=== PATIENT | male | born 1970 | race Caucasian/White ===

== ENCOUNTER 2021-07-13 10:08 | Outpatient (CLI) | payer BC, SELFPAY ==
[2021-07-13 10:36] LABS: Sperm Present Sperm Not Present
== END 2021-07-13 10:09 | disposition home or self-care (01) ==
LOC: LAB 10:16
PROVIDERS: Visit Provider Urology
DX: Z98.52 Vasectomy status (principal)
CPT/HCPCS: 89310

== ENCOUNTER 2021-07-27 12:17 | Outpatient (CLI) | payer BC, SELFPAY ==
[2021-07-27 13:12] LABS: Sperm Present Sperm Not Present
== END 2021-07-27 12:18 | disposition home or self-care (01) ==
LOC: LAB 12:19
PROVIDERS: PCP Family Medicine; Visit Provider Urology
DX: Z98.52 Vasectomy status (principal)
CPT/HCPCS: 89310

== ENCOUNTER 2021-08-03 08:30 | Outpatient (CLI) | payer BC, SELFPAY ==
--- NOTE | 2021-08-03 08:34 | US_ITS ---
WS: [id number] ULTRASOUND ABDOMEN CLINICAL INFORMATION: NAUSEA/VOMITING;ELEVATED LIVER ENZYMES; DIARRHEA COMPARISON: FINDINGS: Liver Size: Enlarged Craniocaudal length: 18.7 cm. Echogenicity: Coarse Surface nodularity: None. Mass (size and location): None. Bile ducts Intrahepatic ducts: Normal. Common bile duct diameter: 0.4 cm. Gallbladder Normal. Gallstones: None. Gallbladder sludge: None. Gallbladder wall thickening: None. Pericholecystic fluid: None. Sonographic Rivas sign: Absent. Pancreas Not well visualized Spleen Splenomegaly: None. Craniocaudal length: 10.5 cm. Right kidney: Normal. Hydronephrosis: None. Size: 11.3 cm x 5.2 cm x 5.2 cm Left kidney: Normal. Hydronephrosis: None. Size: 11.4 cm x 4.6 cm x 5.6 cm. Abdominal aorta and IVC Visualized portions are normal. Ascites: None. US/US abdomen complete* [id number] IMPRESSION: 1. Hepatomegaly with coarse echogenicity likely due to diffuse fatty infiltrat ion or hepatocellular disease. Recommend correlation with liver function tests. 2. Gallbladder is normal in appearance. No cholelithiasis. Common bile duct me asures 4.3 mm. 3. No hydronephrosis in either kidney. 4. Normal spleen. 5. Pancreas not well visualized.. 6. Ultrasound otherwise unremarkable.
== END 2021-08-03 08:31 | disposition home or self-care (01) ==
LOC: RAD 08:32
PROVIDERS: PCP Family Medicine; Visit Provider Nurse Practitioner Family
DX: R11.2 Nausea with vomiting, unspecified (principal); R74.8 Abnormal levels of other serum enzymes; R19.7 Diarrhea, unspecified; R16.0 Hepatomegaly, not elsewhere classified
CPT/HCPCS: 76700

== ENCOUNTER 2022-05-02 09:36 | Outpatient (CLI) | payer BC, SELFPAY ==
[2022-05-02 10:22] LABS: Estmated Average Glucose 128; Hemoglobin A1C 6.1 % (4.0-6.0)
[2022-05-02 10:36] LABS: Testosterone Total - Urology 280 ng/mL (300-1000)
[2022-05-03 07:59] LABS: Alanine Aminotransferase 29 U/L (0-41); Albumin Level 4.5 g/dL (3.5-5.2); Alkaline Phosphatase 83 U/L (40-130); Anion Gap 17.7 (5-19); Aspartate Amino Transferase 24 U/L (0-40); Blood Urea Nitrogen 16 mg/dL (6-20); Calcium 9.6 mg/dL (8.5-10.5); Carbon Dioxide 27 mmol/L (22-29); Chloride 98 mmol/L (98-107); Chol HDL Ratio 3.89 mg/dL (1.0-5.00); Cholesterol 109 mg/dL (0-200); Glomerular Filtration Rate 77.9 mL/min (90-130); Glucose 123 mg/dL (65-115); HDL Cholesterol 28 mg/dL (60-100); LDL Cholesterol Calculated 45 mg/dL (50-129); LDL HDL Ratio 1.61 RATIO (0.00-3.22); Osmolality Calculated 287 mOsm/kg (285-295); Potassium 5.7 mmol/L (3.5-5.1); Sodium 137 mmol/L (136-145); Total Bilirubin 0.4 mg/dL (0.15-1.2); Total Protein 7.5 g/dL (6.6-8.7); Triglycerides 179 mg/dL (0-150)
== END 2022-05-02 09:37 | disposition home or self-care (01) ==
PROVIDERS: Internal Medicine; PCP Family Medicine; Visit Provider Urology
DX: R79.89 Other specified abnormal findings of blood chemistry (principal); E11.9 Type 2 diabetes mellitus without complications
CPT/HCPCS: 36415; 80053; 80061; 81003; 83036; 84403

== ENCOUNTER 2023-11-18 09:43 | Outpatient (CLI) | payer BC, SELFPAY ==
--- NOTE | 2023-11-18 09:55 | XRR_ITS ---
PROCEDURE INFORMATION: Exam: XR Right Knee Exam date and time: 11/18/2023 10:08 AM Age: 53 years old Clinical indication: Right; Patient HX: RT knee pain below kneecap x 2 mo; Additional info: Pain in R knee TECHNIQUE: Imaging protocol: Radiologic exam of the right knee. Views: 3 views. COMPARISON: No relevant prior studies available. FINDINGS: Bones/joints: Negative for acute fracture. Normal joint alignment. Negative for joint effusion. Moderate to severe narrowing medial joint space with marginal osteophytes. Soft tissues: Normal. XR/XR knee RT 3V* [id number] IMPRESSION: Negative for acute pathology.
== END 2023-11-18 09:44 | disposition home or self-care (01) ==
PROVIDERS: PCP Family Medicine; Visit Provider Family Medicine
DX: M25.561 Pain in right knee (principal)
CPT/HCPCS: 73562

== ENCOUNTER → 2024-01-12 08:37 | Outpatient (BNVA) | payer BC, SELFPAY | PROVIDERS: PCP Family Medicine; Referring Provider Family Medicine; Visit Provider Specialist | DX: M17.11 Unilateral primary osteoarthritis, right knee | CPT/HCPCS: 73560; 73565 ==

== ENCOUNTER 2024-02-20 07:58 | Outpatient (CLI) | payer BC, SELFPAY ==
--- NOTE | 2024-02-20 08:00 | IR_ITS ---
WS: [id number] RIGHT KNEE ARTHROGRAM Fluoroscopic guided right knee arthrogram. CLINICAL INFORMATION: right knee pain TECHNIQUE: The procedure including risks, benefits, and complications were discussed with the patient , who agreed to proceed. Timeout was performed. Using sterile technique, the patient was prepped and draped in the usual sterile fashion. After 1% lidocaine injection using fluoroscopic guidance, a 22-g auge spinal needle was advanced into the left patellofemoral compartment. Subsequently 40 cc of a mix ture containing 10 cc 1% lidocaine, 20 cc normal saline, 10 cc Omnipaque 240, and 0.2 cc gadolinium w as administered. No immediate complications. FLUOROSCOPY TIME: 0min [id number] # of spot films: 2 IR/[place] [id number] IMPRESSION: Uncomplicated right knee fluoroscopic guided arthrogram. MRI to follow.
--- NOTE | 2024-02-20 08:01 | MR_ITS ---
WS: [id number] MRI RIGHT KNEE ARTHROGRAM TECHNIQUE: Axial PD, coronal PD fat sat, coronal PD, sagittal PD, and sagittal PD fat-sat images obta ined. Multiplanar imaging post arthrogram. CLINICAL INFORMATION: M17.11 - Unilateral primary osteoarthritis, right knee FINDINGS: Distal quadriceps and patella tendons are intact. Hypertrophic patella. T1 and T2 signal abnormality involving the ACL compatible with chronic mucoid degeneration. PCL appears intact. Moderate tricompar tmental arthritis. Hypertrophic changes along the joint line. Moderate chondromalacia patella. Media l and lateral patellar retinaculum appear intact. Hypertrophic patella. Lobulated popliteal cyst measuring 5.5 x 2.3 cm. Evidence of prior postoperative changes of medial me niscectomy. Near complete loss of the medial joint space with grade IV chondromalacia and subchondral edema. Sswe-[id number]-xbtt articulation along some portions of the articular surface. Chronic thinning of t he lateral meniscus which appears intact. Normal medial and lateral collateral ligaments. Normal popl iteus. MR/MR knee RT wo/w con [id number] IMPRESSION: 1. Mucoid degeneration ACL. PCL appears intact. 2. Prior medial meniscectomy with advanced degenerative narrowing medial joint compartment with [id number]-ij-yamo articulation and subchondral edema. Grade IV cho ndromalacia. 3. Chronic thinning of the lateral meniscus which appears intact. 4. Moderate chondromalacia patella. 5. Lobulated popliteal cyst which fills with contrast measuring 5.5 x 2.3 cm. 6. Medial and lateral collateral ligaments appear intact. 7. No other acute findings. Outbridge grading: grade IV: full-thickness cartilage loss with underlying bone reactive changes
[2024-02-20] MEDS: iohexol 240 mg/mL 50 mL Btl 20 ML INTRA-ARTI (09:41)
[2024-02-20] MEDS: gadobenate dimeglumine 20 mL vial IV (09:42)
== END 2024-02-20 07:59 | disposition home or self-care (01) ==
LOC: RAD 07:59
PROVIDERS: PCP Family Medicine; Visit Provider Specialist
DX: M17.11 Unilateral primary osteoarthritis, right knee (principal); M94.261 Chondromalacia, right knee; M71.21 Synovial cyst of popliteal space [Baker], right knee
CPT/HCPCS: 27369; 73723; 77002; A9577; Q9966

== ENCOUNTER → 2024-05-17 17:25 | Outpatient (BNVA) | payer BC, SELFPAY | PROVIDERS: PCP Family Medicine; Visit Provider Nurse Practitioner | DX: M25.561 Pain in right knee (principal) | CPT/HCPCS: 80053; 81001; 85025 ==

== ENCOUNTER 2024-05-25 16:47 | Outpatient (CLI) | payer BC, SELFPAY ==
--- NOTE | 2024-05-25 17:00 | CT_ITS ---
WS: [id number] CT RIGHT KNEE, NONCONTRAST [facility] TECHNIQUE: Noncontrast CT of the RIGHT knee to include the RIGHT hip and ankle. CLINICAL INFORMATION: right knee osteoarthritis DLP: 948.[address] scans at [facility] use at least one of these dose optimization techniques: automated e xposure control; mA and/or kV adjustment per patient size (includes targeted exams where dose is matc hed to clinical indication); or iterative reconstruction. FINDINGS: Moderate to advanced degenerative arthritis RIGHT knee. Hypertrophic changes along the joint line. Ti ny suprapatellar effusion. Hypertrophic patella. Lobulated popliteal cyst. CT/CT knee RT BOBBY [id number] IMPRESSION: Images obtained for preoperative purposes.
== END 2024-05-25 16:48 | disposition home or self-care (01) ==
LOC: RAD 16:48
PROVIDERS: PCP Family Medicine; Visit Provider Nurse Practitioner
DX: Z01.818 Encounter for other preprocedural examination (principal); M17.11 Unilateral primary osteoarthritis, right knee; M79.4 Hypertrophy of (infrapatellar) fat pad; M71.21 Synovial cyst of popliteal space [Baker], right knee
CPT/HCPCS: 73700

== ENCOUNTER → 2024-06-01 08:33 | Outpatient (BNVA) | payer BC, SELFPAY | PROVIDERS: PCP Family Medicine; Visit Provider Family Medicine | DX: Z01.818 Encounter for other preprocedural examination (principal) | CPT/HCPCS: 83036; 93005 ==

== ENCOUNTER 2024-06-15 12:31 | Observation (INO) | payer BC, SELFPAY ==
[2024-06-15] VITALS (21 sets, daily range): BP systolic 86–145; BP diastolic 50–107; PULSE 82–110; RESP 14–18; TEMP 36.2–36.6; O2SAT 91–99; BMI 37.4
--- NOTE | 2024-06-15 07:54 | P.HPUD_ITS ---
Surgery/Procedure H&P Update DATE OF PROCEDURE: June 15, 2024 DATE H&P PERFORMED: 06/01/24 H&P UPDATE INFORMATION: I have reviewed H&P completed within last 30 days, I have examined patient prior to procedure, No changes to prior documentation and H&P is in [facility] [place] EMR on date indicated PLANNED PROCEDURE: Operation Date: 06/15/24 12:50 Proposed Procedures p Total Knee Arthroplasty(Right) - Nida Hendricks MD Related Problem List Diagnoses (1) Primary osteoarthritis of right knee:
[2024-06-15 08:03] LABS: Glucose Point of Care 216 mg/dL (70-110)
[2024-06-15] MEDS: acetaminophen 1,000 MG/100 ML PIGGYBACK 400 MG IV ×2 (08:05→16:54)
[2024-06-15] MEDS: sodium chloride 0.9% 1,000 ML 30 ML IV (08:05)
[2024-06-15] MEDS: CELEcoxib 200 mg Capsule 400 MG PO (08:06)
[2024-06-15] MEDS: gabapentin 300 mg Capsule PO (08:06)
--- NOTE | 2024-06-15 08:32 | ANES.PROC ---
Anesthesia Procedures Procedure/Date: 06/15/24 Nerve Block ^: Nerve Block 1: Main Anesthesia: spinal anesthesia block Time Out Performed: Yes Consent: requested by attending/covering physician, from patient, risks and benefits reviewed and patient agrees to proceed Nerve block location: adductor canal (Right) Anesthesia monitors applied: pulse oximetry, EKG and BP cuff Nerve block position: supine Anesthetic Used: ropivicaine 0.5% Amount of anesthesia used (mL): 30 Ultrasound used to: recognize landmarks and visualize and ID femerol nerve Nerve Stimulator Used?: No Interscalene/Femoral BLK: 4 stimuplex 21 g needle used for position and inplane approach, visualize local anesthetic spread and no vascular puncture identified Injection: neg aspiration of heme Patient Tolerated Procedure: well and no complications Additional Comments: 4mg Decadron in block solution.
--- NOTE | 2024-06-15 08:35 | ANES.PREANE2 ---
Pre-Anesthetic Assessment Height/Weight: Height 1.65 m Weight 102.058 kg Temp Pulse Resp BP Pulse Ox O2 Del Method 97.4 F L 97 16 145/95 99 Room Air 06/15/24 07:48 06/15/24 07:48 06/15/24 07:48 06/15/24 07:48 06/15/24 07:48 06/15/24 07:48 Operation Date: 06/15/24 12:50 Proposed Procedures p Total Knee Arthroplasty(Right) - Nida Hendricks MD Familial anesthetic complications: NOne Was Beta Shelby taken within 24 hours: N/A Was Clonidine taken within 24 hours: N/A Last intake: Intake Last Liquid Date 06/14/24 Last Liquid Time 22:30 Last Solid Date 06/14/24 Last Solid Time 19:30 Social No alcohol and No tobacco Exam alert, oriented x 3, clear to auscultation bilaterally and regular rate & rhythm Airway Mallampati: Class III Dentition: other (1 missing) CV/HEM Hypertension Metabolic Diabetes Mellitus, Hyperlipidemia and Morbid Obesity Anesthetic Plan ASA status: 3 Anesthesia: Regional (specify below) (spinal + adductor) Risk of > 500 ml blood loss (7ml/kg in children): No Medications/Allergies Home Medications Medication Instructions Recorded Confirmed Last Taken Type bupropion HCl 150 mg 24 hr tablet, 150 mg PO QAM 04/01/22 06/15/24 06/13/24 History extended release (Wellbutrin XL) fluticasone 100 mcg-salmeterol 50 1 inh inhalation DAILY 04/01/22 06/15/24 06/15/24 History mcg/dose blistr powdr for inhalation (Advair Diskus) lisinopril 10 mg tablet 10 mg PO DAILY 04/01/22 06/14/24 06/13/24 History montelukast 10 mg tablet 10 mg PO DAILY 04/01/22 06/14/24 06/14/24 History semaglutide 1 mg/dose (4 mg/3 mL) 4 mg SUBCUT .WEEKLY. 04/01/22 06/14/24 06/04/24 History subcutaneous pen injector (Ozempic) simvastatin 20 mg tablet 20 mg PO DAILY 04/01/22 06/14/24 06/13/24 History albuterol sulfate 90 mcg/actuation 2 puff inhalation Q6H PRN Allergy 05/02/22 06/15/24 06/15/24 History aerosol inhaler (ProAir HFA) Symptoms multivitamin 1 tab PO DAILY 05/02/22 06/14/24 06/14/24 History vitamin B complex (Vitamins B 1 cap PO DAILY 05/02/22 06/14/24 06/13/24 History Complex capsule) insulin degludec 100 unit/mL (3 22 unit SUBCUT DAILY 06/01/24 06/14/24 06/12/24 History mL) subcutaneous pen (Tresiba FlexTouch U-100 insulin) metformin 500 mg tablet 500 mg PO BID 06/01/24 06/14/24 06/14/24 History Allergies Allergy/AdvReac Type Severity Reaction Status Date / Time Penicillins Allergy Unknown Verified 06/01/24 08:33 Current Medications Generic Name Dose Route Start Last Admin Trade Name Freq PRN Reason Stop Dose Admin Sodium Chloride 1,000 mls @ 30 mls/hr 06/15/24 07:45 06/15/24 08:05 Sodium Chloride 0.9% IV 06/16/24 07:44 30 mls/hr .Q24H NADYA Administration PFSH Anesthesia Medical History Premature ejaculation ED (erectile dysfunction) Asthma Low testosterone Hypertension Diabetes mellitus Surgical History History of shoulder surgery History of knee surgery History of ear surgery Family History Mother Healthy adult Father , at age 83 Cancer Prostate Social History Smoking and tobacco/nicotine status: never used tobacco/nicotine Alcohol intake: never Household members: spouse Marital status: Current occupational status: employed Data Anesthesia Cardiac Studies: No Data to Display
[2024-06-15] MEDS: ceFAZolin 2,000 mg SDV 2000 MG IVP ×2 (08:43→16:54)
[2024-06-15] MEDS: tranexamic acid 1,000 mg/10mL SDV 1000 MG IV (09:07)
--- NOTE | 2024-06-15 09:13 | ECG_ITS ---
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 Measurements Intervals [place] Rate: 83 P: 47 AR: 205 QRS: -54 QRSD: 137 T: 11 QT: 415 QTc: 490 Interpretive Statements SINUS RHYTHM LEFT AXIS DEVIATION [QRS AXIS < -30] RIGHT BUNDLE BRANCH BLOCK [120+ ms QRS DURATION, UPRIGHT V1, 40+ ms S IN I/aVL/V4/V5/V6] Compared to ECG 06/01/2024 08:49:59 Left-axis deviation now present Right bundle-branch block now present Electronically Signed On 06-15-2024 15:10:08 OVERWEAVER by Geovanny Alex M.D. [email or web address]
[2024-06-15] MEDS: ceFAZolin 2,000 mg SDV 2000 MG IRRIGATION (10:33)
[2024-06-15] MEDS: VANCOMYCIN ADD-Vantage 1,000 MG VIAL 1000 MG XX (10:34)
--- NOTE | 2024-06-15 12:23 | P.OP_ITS ---
Operative Report Date of procedure: June 15, 2024 Pre-op diagnosis: Primary osteoarthritis right knee with varus deformity Post-op diagnosis: Primary osteoarthritis right knee with varus deformity Post-op findings: Severe degenerative osteoarthritis right knee with slight varus deformity and significant loss of cartilage Procedure done: Right total knee arthroplasty with Boy guidance Implants: The [place] total knee system with a size 5 triathlon beaded cruciate retaining femur right, a triathlon titanium tibial component size 4 beaded, a triathlon X3 tibial bearing CS insert size 4 x 11 mm and a beaded triathlon titanium asymmetric patella size 35 x 10 mm Specimens removed/disposition: Bone, disposed of Pathology: None Surgeon: Nida Hendricks MD Advisory Application Developer: Nadine Villanueva Advisory Application Developer: Whose services were required for retraction, positioning, intraoperative exposure, and closure Anesthesia: Spinal (With MAC, ASA 3) Estimated blood loss (mL): 350 Tourniquet time (min): 0 (Not utilized) IV fluids (mL): 1,500 Urine output (mL): 300 Complications: None Findings: Severe degenerative osteoarthritis with denudement of cartilage and osteophytes Condition: stable Disposition: PACU (Then to floor for postoperative rehabilitation and pain management under observation status) Brief History: This 54-year-old gentleman presented today for right total knee arthroplasty. He was seen in the clinic preoperatively. He had significant limitations in his activities of daily living and worsening of the pain over several years. Conservative management including anti-inflammatory medications, oral analgesics, home physical therapy, and strengthening as well as prior knee braces were not of benefit. After discussion, the patient wished to proceed with total knee arthroplasty. Risks and complications were discussed with him. Consents were signed in the office and questions were answered. Procedure: The patient was brought to the operating theater, and after undergoing spinal anesthesia with MAC, ASA 3, which followed preoperative adductor block, the right lower extremity was prepped with Dura-Prep and draped in usual fashion following placement of a tourniquet high on the leg. The leg was then draped free.? Tourniquet was not elevated throughout the surgical procedure. Prior to commencement of the procedure, a surgical pause was performed, and at the time of the surgical pause, we confirmed the site and side of surgery. Additionally, we confirmed the appropriate and timely administration of preoperative antibiotics, Ancef 2 g.? The availability of equipment was confirmed, and the patient's identity was verbalized as well. Following the surgical pause, an incision was made centering over the patella continuing proximally and distally as necessary to allow access to the knee joint. Dissection continued through skin and soft tissues using a scalpel. Hemostasis was obtained using electrocautery. The skin incision was followed by a median parapatellar arthrotomy. The leg was extended and the patella was able to be displaced laterally.? Appropriate arrays and markers were placed in appropriate position for use of the Boy.? Preoperative planning had been accomplished and was discussed in detail with the [facility] labor union business representative.? Intraoperative mapping of the femur and tibia was accomplished after the arrays were placed.? Internal markers were also placed.? Once we had accomplished the Boy mapping, we began the appropriate resections for placement of the pros thesis.? The plan was for a cruciate retaining left total knee arthroplasty. Once appropriate mapping had been accomplished retraction was established using manual retraction by surgical technicians and also the Boy leg positioner and retractors.? The knee was evaluated.? There was significant osteoarthritic change as well as a significant flexion contracture and severe varus deformity.? Appropriate bone resection was accomplished using the Boy.? The femur was sized to a size 5.? Following femoral cuts, attention was directed to the tibia.? Osteophytes were removed prior to this portion of the procedure.? We had performed a medial release at the beginning of the procedure to allow for placement of the array.? Proximal tibia was evaluated, and it was felt that appropriate size for the tibia was a size 4.? Tray was noted to fit nicely with good coverage.? Rim fit was accomplished with the size 4. A trial reduction was accomplished after osteophytes have been removed as well as the medial and lateral menisci.? We had removed the anterior cruciate ligament at the beginning of the case and preserved the posterior cruciate ligament.? Trial reduction was accomplished with a size 5 femoral cruciate retaining component, a size 4 tibial tray and a size 4 CS tibial bearing insert which was 9 mm. We increased this to a size 10 mm for trial and actual implant was a size 11 mm tibial insert. Alignment was felt to be appropriate as well.? Trial components were removed after the femur had been drilled.? Prior to removal of the tibial tray which had been pinned in position with appropriate rotation as determined by the Boy plan, we broached the tibia.? Subsequently, the 4 drill holes were made for the prosthetic component.? All trial components were removed, and the wound was irrigated.? Plans were made for insertion of the prosthetic components.? Prior to this, the patella was manually prepared.? After resection of the articular surface with the jogging system, it was measured and measured a 35 mm patella.? We resected approximately 10 mm of patella.? Patellar height was restored with the patellar component. Once again, the wound was irrigated. The Tritanium tibia was impacted into position.? The beaded femur was then impacted into position in a cementless fashion. The CS tibial insert was placed prior to placement of the femoral component. The patella was pressed into position with a patellar clamp.? The knee was then copiously irrigated with betadine and saline and suctioned dry. Attention was then directed to closure. Closure was accomplished with 0 Vicryl in the fascial tissues.? The suture line of 0 Vicryl was supplemented with strata fix, #1, with a running suture from proximal to distal and a second running stitch from distal to proximal.? This was followed by Surgiflo and vancomycin powder.? Following this, a 2-0 Strata Fix was used in the subcutaneous tissues, and the skin was closed with 3-0 Strata fix.? Care was taken to assure an excellent subcutaneous as well as skin closure.? A sterile dressing was then placed consisting of Dermabond Prineo, OpSite, ABD, sterile soft roll, and an James wrap including over the foot. The patient was returned the Recovery Room in a satisfactory condition. X-rays were obtained and reviewed there.? The patient will be discharged to the floor for postoperative rehabilitation and pain management. Related Problem List Diagnoses (1) Primary osteoarthritis of right knee:
--- NOTE | 2024-06-15 12:32 | XR_ITS ---
WS: [id number] Right knee, AP and lateral views, 06/15/2024 Clinical Data: Status post right total knee arthroplasty Comparison: AP both knees, right knee, 01/12/2024 Findings: There is a right knee arthroplasty with components in satisfactory position. There is air in the join t space from the recent surgery. No periprosthetic fractures or loosening is seen. XR/XR knee RT 3V* [id number] Impression: Stable right knee arthroplasty.
--- NOTE | 2024-06-15 12:55 | ANE.PACU2 ---
Inpatient post-anesthesia follow up: Airway intact: Yes Vital signs: Temperature 97.6 F Pulse Rate 88 Respiratory Rate 16 Blood Pressure 122/87 Pulse Oximetry 96 Oxygen Delivery Me thod Room Air Oxygen Flow Rate Fraction of Inspir ed Oxygen Hydration adequate: Yes Nausea and vomiting: No Pain level: 1 Mental status: Baseline
[2024-06-15 12:59] LABS: Glucose Point of Care 252 mg/dL (70-110)
--- NOTE | 2024-06-15 13:21 | P.CONIM_ITS ---
Providers/Reason For Consult Consulting Physician/Specialty*: Hospitalist Reason for Consult*: Diabetes and cardiac Attending Physician: Nida Hendricks MD Primary Care Provider: Yolanda Baez MD History of Present Illness History of Present Illness Pleasant 54-year-old gentleman with history of SEEMA, DM2, HTN, asthma underwent right knee TKA. He is recovering in PACU after uneventful procedure. EBL 350 mL. Questionable EKG changes preoperatively were reviewed by cardiology. He denies any chest pain or pressure. No trouble breathing. He is currently comfortable. His blood glucoses 219. She does report that his blood sugars have been running somewhat on the higher side at home. He uses 20 units long- acting insulin in addition to a GLP-1 inhibitor. He states he has otherwise been at baseline state of health. Review of Systems Const: Denies: fever(s), chills, body aches or malaise ENMT: Denies: throat pain, oral sores or ear or mastoid pain Card: Denies: chest pain, edema, pre-syncope or dyspnea on exertion Resp: Denies: dyspnea, productive cough, change in phlegm color or hemoptysis GI: Denies: abdominal pain, nausea, vomiting, diarrhea, constipation, hematochezia or melena : Denies: difficulty urinating or hematuria Musc: Denies: back pain Skin/Breast: Denies: rash Neuro: Denies: headache(s) Medications/Allergies Home Medications Medication Instructions Recorded Confirmed Last Taken Type bupropion HCl 150 mg 24 hr tablet, 150 mg PO QAM 04/01/22 06/15/24 06/13/24 History extended release (Wellbutrin XL) fluticasone 100 mcg-salmeterol 50 1 inh inhalation DAILY 04/01/22 06/15/24 06/15/24 History mcg/dose blistr powdr for inhalation (Advair Diskus) lisinopril 10 mg tablet 10 mg PO DAILY 04/01/22 06/14/24 06/13/24 History montelukast 10 mg tablet 10 mg PO DAILY 04/01/22 06/14/24 06/14/24 History semaglutide 1 mg/dose (4 mg/3 mL) 4 mg SUBCUT .WEEKLY. 04/01/22 06/14/24 06/04/24 History subcutaneous pen injector (Ozempic) simvastatin 20 mg tablet 20 mg PO DAILY 04/01/22 06/14/24 06/13/24 History albuterol sulfate 90 mcg/actuation 2 puff inhalation Q6H PRN Allergy 05/02/22 06/15/24 06/15/24 History aerosol inhaler (ProAir HFA) Symptoms multivitamin 1 tab PO DAILY 05/02/22 06/14/24 06/14/24 History vitamin B complex (Vitamins B 1 cap PO DAILY 05/02/22 06/14/24 06/13/24 History Complex capsule) insulin degludec 100 unit/mL (3 22 unit SUBCUT DAILY 06/01/24 06/14/24 06/12/24 History mL) subcutaneous pen (Tresiba FlexTouch U-100 insulin) metformin 500 mg tablet 500 mg PO BID 06/01/24 06/14/24 06/14/24 History Allergies Allergy/AdvReac Type Severity Reaction Status Date / Time Penicillins Allergy Unknown Verified 06/01/24 08:33 Current Medications Generic Name Dose Route Start Last Admin Trade Name Freq PRN Reason Stop Dose Admin Sodium Chloride 1,000 mls @ 30 mls/hr 06/15/24 07:45 06/15/24 08:05 Sodium Chloride 0.9% IV 06/16/24 07:44 30 mls/hr .Q24H NADYA Administration PFSH Acute PFSH: Medical History Premature ejaculation ED (erectile dysfunction) Asthma Low testosterone Hypertension Diabetes mellitus Surgical History History of shoulder surgery History of knee surgery History of ear surgery Family History Mother Healthy adult Father , at age 83 Cancer Prostate Social History Smoking and tobacco/nicotine status: never used tobacco/nicotine Alcohol intake: never Household members: spouse Marital status: Current occupational status: employed Vitals/I&O/Wt Last Vital Signs Temp 97.1 F L 06/15/24 12:45 Pulse 94 06/15/24 12:45 Resp 17 06/15/24 12:45 BP 137/96 06/15/24 12:45 Pulse Ox 93 06/15/24 12:45 O2 Del Method Room Air 06/15/24 13:08 06/14/24 06/15/24 06/15/24 22:59 06:59 14:59 Intake Total 1600 / 1600 Output Total 950 / 950 Balance 650 / 650 Weight last 48 hrs Weight 102.058 kg Weight 102.058 kg Physical Exam Const: COMMON NORMALS: patient oriented x3 and alert GENERAL APPEARANCE: cooperative ORIENTATION/CONSCIOUSNESS: Yes awake HENMT: COMMON NORMALS: oropharynx normal Neck/C-Spine: COMMON NORMALS: no JVD Resp: COMMON NORMALS: normal respiratory effort and clear to auscultation bilaterally AUSCULTATION: clear to auscultation bilaterally Cardio: COMMON NORMALS: no JVD, regular rhythm, S1 normal heart sound present, S2 normal heart sound present and No murmurs present (Cardio) RHYTHM: regular rhythm HEART SOUNDS: S1 normal heart sound present and S2 normal heart sound present GI: COMMON NORMALS: Normal to inspection, nondistended, normoactive bowel sounds present, Soft to palpation and non-tender PALPATION: Yes Soft to palpation Extremity: COMMON NORMALS: no joint enlargement and no pedal edema OTHER: Right lower extremity in postsurgical dressing. Neuro: COMMON NORMALS: patient oriented x3 and moves all extremities SENSORIUM/ORIENTATION: Yes alert Skin: COMMON NORMALS: no rashes or lesions noted GENERAL SKIN EXAM: no rashes or lesions noted Urinary Catheter Management: Jerome: Cath Placed During This Visit: yes Urinary Catheter Date of Insertion: 06/15/24 Urinary Catheter Time of Insertion: 09:15 A&P Assessment and plan (1) Status post right knee replacement: Status post right TKA. Unremarkable procedure. [id number] mL He is doing well postoperatively. Questionable EKG changes preoperatively were reviewed by cardiology. Denies any pain, discomfort, chest pain or pressure, shortness of breath, any other complaints. Reviewed vitals, CBC, BMP, POC glucose. Knee x- ray, orthopedic documentation. Discussed with orthopedic surgery. Discussed with him he is going to be started on DVT prophylaxis by orthopedics. Reassess blood counts, assess for anemia. He denies any hematochezia, melena, hematuria or any other bleeding. Blood glucose on the higher side 216, 252 on recheck. He uses long-acting insulin daily, has been resumed. Sliding scale scale added. Monitor blood glucose. Adjust diet to consult carbohydrate. Justus in place, VICTORINA once able to mobilize. Pending PT assessment. Incentive spirometer is requested. Pain control, has been started on Celebrex, acetaminophen, oxycodone as needed. Post discharge planning, tentatively plans to return home. Plan DM2 with hyperglycemia: Does report sugars running on the higher side at home. Resumed on long-acting insulin 18 units, adjust diet consistent carbohydrate. Add sliding scale insulin. Monitor blood glucose. SEEMA: Nightly CPAP. Requested. HTN: Blood pressure somewhat elevated in PACU, but is doing better now 122/87. Noted some hyperkalemia, on lisinopril. Requested low potassium diet. Recheck chemistry. Mild intermittent asthma: On Advair at home. Continue budesonide low-dose twice daily in the hospital. Albuterol as needed. Consult Attestations Medical Necessity Statement: Continue hospitalization for postop care after TKA in a gentleman with hyperglycemia DM 2, additional comorbidities as above. and High MDM includes amount and/or complexity of data reviewed/ordered [ previous or external records, resulted lab(s)/test(s), ordered lab(s)/test(s) and other healthcare professional discussion] as documented Diagnoses Status post right knee replacement Z96.651
[2024-06-15] MEDS: oxyCODONE 5 mg IR Tab/Cap PO ×2 (14:23→20:29)
[2024-06-15] MEDS: chlorhexidine gluconate 0.12% Btl 473 mL 30 ML MUCOUS MEM ×3 (14:26→22:16)
[2024-06-15 14:53] LABS: Basophils % 0.2 %; Eosinophils % 0.2 %; Hematocrit 40.4 % (37-53); Lymphocytes # 0.6 10^3/uL (0.8-4.8); Mean Corpuscular HGB Conc 32.9 g/dL (30-55); Mean Corpuscular Hemoglobin 29.9 pg (27-33); Mean Corpuscular Volume 90.8 fl (82-101); Mean Platelet Volume 9.7 fL (7.4-10.4); Monocytes # 0.2 10^3/uL (0.2-0.9); Monocytes % 1.6 %; Neutrophils # 8.46 10^3/uL (1.8-7.7); Neutrophils % 91.7 %; Nucleated Red Blood Cells % 0 %; Platelet Count 196 10^3/cmm (157-399); Red Blood Count 4.45 10^6/uL (3.85-5.65); Red Cell Distribution Width 12.1 % (12.1-15.1); White Blood Count 9.23 10^3/uL (3.29-11.43)
[2024-06-15 15:10] LABS: Anion Gap 14.4 (5-19); Blood Urea Nitrogen 11 mg/dL (6-20); Calcium 8.4 mg/dL (8.5-10.5); Carbon Dioxide 24 mmol/L (22-29); Chloride 104 mmol/L (98-107); Creatinine Clr Calc Pharmacy 113.3463; Glucose 269 mg/dL (65-115); Osmolality Calculated 293 mOsm/kg (285-295); Potassium 5.4 mmol/L (3.5-5.1); Sodium 137 mmol/L (136-145)
[2024-06-15 16:40] LABS: Glucose Point of Care 291 mg/dL (70-110)
[2024-06-15] MEDS: mupirocin oint 22 gm 1 APPLIC NASAL (16:52)
[2024-06-15] MEDS: calcium carbonate 500 mg Chew Tablet 1000 MG PO (16:52)
[2024-06-15] MEDS: iron polysaccharide complex 150 mg Capsule PO (16:53)
[2024-06-15] MEDS: tranexamic acid 1,000 MG/100 ML PREMIX 600 MG IV (16:54)
[2024-06-15] MEDS: insulin lispro 100 unit/1 mL SUBCUT ×2 (16:55→22:14)
[2024-06-15] MEDS: CELEcoxib 200 mg Capsule PO (20:30)
[2024-06-15 21:28] LABS: Glucose Point of Care 310 mg/dL (70-110)
[2024-06-15 21:28] LABS: Glucose Point of Care 303 mg/dL (70-110)
[2024-06-16] VITALS (11 sets, daily range): BP systolic 115–146; BP diastolic 67–88; PULSE 96–114; RESP 16–18; TEMP 36.6–36.8; O2SAT 92–97; BMI 38.1
[2024-06-16] MEDS: acetaminophen 1,000 MG/100 ML PIGGYBACK 400 MG IV ×2 (00:10→09:03)
[2024-06-16] MEDS: ceFAZolin 2,000 mg SDV 2000 MG IVP ×2 (00:11→09:04)
[2024-06-16] MEDS: buPROPion XL (24 HR) 150 mg Tablet PO (05:30)
[2024-06-16 06:00] LABS: Basophils % 0.1 %; Eosinophils % 0.1 %; Hematocrit 34.6 % (37-53); Lymphocytes % 9.6 %; Mean Corpuscular HGB Conc 33.8 g/dL (30-55); Mean Corpuscular Hemoglobin 30.9 pg (27-33); Mean Corpuscular Volume 91.3 fl (82-101); Mean Platelet Volume 10.1 fL (7.4-10.4); Monocytes # 0.8 10^3/uL (0.2-0.9); Monocytes % 7.1 %; Neutrophils # 8.69 10^3/uL (1.8-7.7); Neutrophils % 82.9 %; Nucleated Red Blood Cells % 0 %; Platelet Count 200 10^3/cmm (157-399); Red Blood Count 3.79 10^6/uL (3.85-5.65); Red Cell Distribution Width 12.1 % (12.1-15.1); White Blood Count 10.49 10^3/uL (3.29-11.43)
[2024-06-16 06:25] LABS: Anion Gap 14.6 (5-19); Blood Urea Nitrogen 17 mg/dL (6-20); Calcium 8.5 mg/dL (8.5-10.5); Carbon Dioxide 23 mmol/L (22-29); Chloride 104 mmol/L (98-107); Creatinine Clr Calc Pharmacy 101.6934; Glomerular Filtration Rate 87.3 mL/min (90-130); Glucose 248 mg/dL (65-115); Osmolality Calculated 294 mOsm/kg (285-295); Potassium 4.6 mmol/L (3.5-5.1); Sodium 137 mmol/L (136-145)
[2024-06-16 06:36] LABS: Glucose Point of Care 286 mg/dL (70-110)
--- NOTE | 2024-06-16 07:07 | ECG_ITS ---
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 Measurements Intervals [place] Rate: 117 P: 67 ID: [id number] QRS: -68 QRSD: 97 T: 50 QT: 327 QTc: 458 Interpretive Statements SINUS TACHYCARDIA LOW QRS VOLTAGE IN PRECORDIAL LEADS [QRS DEFLECTION < 1.0 mV IN CHEST LEADS] PATTERN CONSISTENT WITH PULMONARY DISEASE INCOMPLETE RIGHT BUNDLE BRANCH BLOCK [90+ ms QRS DURATION, TERMINAL R IN V1/V2, 40+ ms S IN I/aVL/V4/V5/V6] INFERIOR MYOCARDIAL INFARCTION , PROBABLY OLD [40+ ms Q WAVE AND/OR ST/T ABNORMALITY IN II/aVF].INTERPRETATION BASED ON A DEFAULT AGE OF 40 YEARS Compared to ECG 06/15/2024 09:28:03 Low QRS voltage now present.Incomplete right bundle-branch block now present Myocardial infarct finding now present. Sinus rhythm no longer present Left-axis deviation no longer present. Right bundle-branch block no longer present Electronically Signed On 06-16-2024 21:35:11 COURIER DELIVERY DRIVER by Susan Jacobson M.D. [email or web address]
[2024-06-16] MEDS: CELEcoxib 200 mg Capsule PO ×2 (09:00→22:00)
[2024-06-16] MEDS: iron polysaccharide complex 150 mg Capsule PO ×2 (09:00→17:26)
[2024-06-16] MEDS: aspirin 325 mg EC Tablet PO (09:00)
[2024-06-16] MEDS: montelukast sodium 10 mg Tablet PO (09:00)
[2024-06-16] MEDS: cholecalciferol (vitamin D3) 1,000 unit Tablet 1000 UNIT PO (09:00)
[2024-06-16] MEDS: lisinopril 10 mg Tablet PO (09:00)
[2024-06-16] MEDS: multivitamin therapeutic Tablet 1 TAB PO (09:00)
[2024-06-16] MEDS: sennosides-docusate Tablet 2 TAB PO ×2 (09:01→17:26)
[2024-06-16] MEDS: calcium carbonate 500 mg Chew Tablet 1000 MG PO ×2 (09:01→17:26)
[2024-06-16] MEDS: insulin lispro 100 unit/1 mL SUBCUT ×4 (09:03→22:00)
[2024-06-16] MEDS: insulin glargine 100 units/1 mL 18 UNIT SUBCUT (09:18)
[2024-06-16 10:39] LABS: Glucose Point of Care 272 mg/dL (70-110)
--- NOTE | 2024-06-16 10:46 | PC.CHAP ---
Pastoral Care Encounter/Spiritual Assessment Type of Contact [] Declined carpenter maintenance visit [] Patient/Family/Request visit [] Outpatient visit [] Follow-up visit [] Physician referral [] Code/Alert [x] Routine visit [] Staff referral [] Actively dying [] Patient sleeping [] Family support [] [] Out of room [] Palliative care [] [] Receiving care in room [] Pre-surgical visit [] Trauma [] Long length of stay [] ICU visit [] Other: Relational/Emotional Strength [x] Patient feels connected with others/family/visitors/staff [] Distress [] Loneliness/isolation [] Abandonment Spirituality of Patient [x] Person of Sofy [] Attends Anabaptist of their Sofy [x] Believes in Prayer [] Reads Bible or Hoahaoism materials [] There are Spiritual issues to be addressed Six Sigma Project Manager Interventions [x] Prayer [x] Active listening [] Non-anxious presence [x] Spiritual/emotional support [] Crisis/trauma care [] Spiritual counseling [] Bereavement support [] Provided bereavement packet [] Provided Bible/devotional materials [] Provided toy/stuffed animal, coloring book to patient or family member [] Provided Communion [] Anointing/[place] [] Salvation [x Completed spiritual assessment [] Other: Impact on Illness or Injury [] Angry [] Fearful [] Anxious [] Often cries [] Exhaustion [] Unable to work [] Unable to attend advent [] Unable to walk/stand [] Unable to read [] Unable to drive [] Unable to eat/drink [] Unable to sleep [] Unable to be with family [] Patient intubated [] Other: Summary Time spent with patient 10 min
[2024-06-16] MEDS: acetaminophen 500 mg Tablet 1000 MG PO ×2 (11:44→22:00)
[2024-06-16] MEDS: oxyCODONE 5 mg IR Tab/Cap PO ×3 (13:57→22:03)
[2024-06-16 15:03] LABS: Adenovirus Not Detected (NOT DETECT); Chlamydia Pneumoniae Not Detected (NOT DETECT); Coronavirus 229E,HKU1,NL63,OC4 Not Detected (NOT DETECT); Human Metapneumovirus Not Detected (NOT DETECT); Human Rhinovirus/Enterovirus Not Detected (NOT DETECT); Influenza A Not Detected (NOT DETECT); Influenza A H1 Not Detected (NOT DETECT); Influenza A H1-2009 Not Detected (NOT DETECT); Influenza A H3 Not Detected (NOT DETECT); Influenza B Not Detected (NOT DETECT); Mycoplasma Pneumoniae Not Detected (NOT DETECT); Parainfluenza Virus Type 1 Not Detected (NOT DETECT); Parainfluenza Virus Type 2 Not Detected (NOT DETECT); Parainfluenza Virus Type 3 Not Detected (NOT DETECT); Parainfluenza Virus Type 4 Not Detected (NOT DETECT); Respiratory Syncytial Virus A Not Detected (NOT DETECT); Respiratory Syncytial Virus B Not Detected (NOT DETECT); SARS-COV-2 Not Detected (NOT DETECT)
--- NOTE | 2024-06-16 15:04 | CTR_ITS ---
PROCEDURE INFORMATION: Exam: CTA Chest With Contrast Exam date and time: 06/16/2024 10:15 PM Age: 54 years old Clinical indication: Shortness of breath; Additional info: Assess for pe TECHNIQUE: Imaging protocol: Computed tomographic angiography of the chest with contrast. Exam focused on the arteries. 3D rendering (Not supervised by radiologist): MIP and/or 3D reconstructed images were created by the technologist. Radiation optimization: All CT scans at this facility use at least one of these dose optimization techniques: automated exposure control; mA and/or kV adjustment per patient size (includes targeted exams where dose is matched to clinical indication); or iterative reconstruction. Contrast material: OMNI 350; Contrast volume: 100 ml; Contrast route: INTRAVENOUS (IV); COMPARISON: US abdomen complete* [id number] 08/03/2021 8:47 AM RADIATION DOSE METRICS: Total DLP (mGy-cm): 505.9 FINDINGS: Pulmonary arteries: No large central pulmonary embolism although the study is limited due to suboptimal bolus timing. Aorta: Unremarkable. No aortic aneurysm. No aortic dissection. Lungs: 10 mm nodule in the right upper lobe. Right basilar linear atelectasis and/or scarring. Pleural spaces: Unremarkable. No pneumothorax. No pleural effusion. Heart: Unremarkable. No cardiomegaly. No pericardial effusion. Coronary arteries: Coronary artery calcifications. Lymph nodes: Small mediastinal and nonspecific right small hilar lymph nodes are not enlarged by size criteria. Bones/joints: Unremarkable. No acute fracture. Soft tissues: Unremarkable. CT/CT angio chest PE protcl [id number] IMPRESSION: 1. No large central pulmonary embolism although limited study due to suboptimal bolus timing. No acute thoracic aortic process. 2. Right upper lobe pulmonary nodule can be followed up based on Fleischner criteria in keeping with the size of the nodule and patient risk factors.
[2024-06-16 15:59] LABS: Thyroid Stimulating Hormone 0.85 uIU/mL (0.27-4.20)
[2024-06-16 16:46] LABS: Glucose Point of Care 234 mg/dL (70-110)
--- NOTE | 2024-06-16 17:55 | P.PN_ITS ---
Subjective 2 Subjective: Patient is seen in his room. He would like to go home, but medical staff services manager would like to evaluate him overnight secondary to an elevated heart rate. He is agreeable to stay if they feel that this is necessary. Otherwise, he would like to be discharged to home. Medications: Reviewed: Yes Vitals/I&O/Wt Last Vital Signs Temp 98.1 F 06/16/24 15:29 Pulse 103 H 06/16/24 15:29 Resp 17 06/16/24 15:29 BP 143/83 06/16/24 15:29 Pulse Ox 97 06/16/24 15:29 O2 Del Method Room Air 06/16/24 15:29 06/16/24 06/16/24 06/16/24 06:59 14:59 22:59 Intake Total 100 / 3020 460 / 460 Output Total 700 / 2100 300 / 300 500 / 800 Balance -600 / 920 160 / 160 -500 / -340 Weight last 48 hrs Weight 229 lb Weight 225 lb Weight 225 lb Physical Exam 2 Const: COMMON NORMALS: no acute distress, average body habitus, patient oriented x3 and alert GENERAL APPEARANCE: cooperative and comfortable O RIENTATION/CONSCIOUSNESS: Yes awake HENMT: COMMON NORMALS: normocephalic and atraumatic HEAD & SCALP: n ormocephalic and atraumatic Eye: GENERAL EYE: appearance normal, both eyes and all related structures Chest: COMMONS NORMALS: normal inspection of the chest Resp: COMMON NORMALS: normal respiratory effort EFFORT & INSPECTION: Yes able to speak in complete sentences and Yes symmetric chest movement Extremity: RIGHT LOWER EXTREMITY: Yes knee joint (Large outer dressing removed. Wound benign.) Right knee: Yes inspection (No evidence of DVT.), Yes ROM (Not evaluated.) and Yes neurovascular exam (Intact distally) Neuro: COMMON NORMALS: patient oriented x3 SENSORIUM/ORIENTATION: Yes alert Psych: COMMON NORMALS: mental status grossly normal APPEARANCE: Yes grossly normal ATTITUDE: Yes calm and Yes engaged ATTENTION/CONCENTRATION: Yes attention grossly intact Skin: COMMON NORMALS: no rashes or lesions noted GENERAL SKIN EXAM: no rashes or lesions noted Urinary Catheter Management: Jerome: Cath Placed During This Visit: yes, but has since been removed by the nurse Reason for Continuing Indwelling Catheter: Perioperative Use in Selected Surgeries Urinary Catheter Date of Insertion: 06/15/24 Urinary Catheter Time of Insertion: 09:15 Date Urinary Catheter Removed: 06/16/24 Time Urinary Catheter Discontinued: 05:38 Data 06/17/24 04:14 06/17/24 04:14 A&P Assessment and plan (1) Primary osteoarthritis of right knee: Patient underwent right total knee arthroplasty uneventfully. He is seen on the first postoperative day, and he has done well with physical therapy. He is hoping to go home, but his heart rate has been elevated. medical record consultant is concerned and would like to wait an additional day to see if he has either a viral issue or other issue accounting for his higher heart rate. The patient notes that he runs with a high heart rate routinely. He will be maintained in the hospital overnight and reevaluated tomorrow. Attestations 2 Medical Necessity Statement*: Evaluation of cardiac issues per hospitalist team Coding Level of Care Code Acute Code for [facility] Fwd Diagnoses Primary osteoarthritis of right knee M17.11
--- NOTE | 2024-06-16 19:26 | P.PN_ITS ---
Subjective 2 Subjective: This morning with sinus tachycardia up as high as 130s. Persistent sinus tachycardia of 100-110. He states subjectively he is feeling okay. His voice is somewhat hoarse and he does have a cold sore on his upper lip. But he does not feel like he is getting any fever, chills, denies any respiratory complaints, no integumentary, GI, urinary or other complaints. She states overall he is doing well. Heart rates are chronically may be slightly elevated but usually in the 90s. Discussed with him additional assessment with respiratory viral panel, further observation due to unexplained sinus tachycardia, further assessment with CT angiogram chest in case of lack of additional explanation to further assess for possible PE. Further observation hospital overnight in case of lack of improvement and no obvious explanation. He is agreeable. She otherwise has gotten up with physical therapy. Encouraged and/primary use, which he states he's been using. Vitals/I&O/Wt Last Vital Signs Temp 98.1 F 06/16/24 15:29 Pulse 103 H 06/16/24 15:29 Resp 16 06/16/24 18:08 BP 143/83 06/16/24 15:29 Pulse Ox 97 06/16/24 15:29 O2 Del Method Room Air 06/16/24 15:29 06/16/24 06/16/24 06/16/24 06:59 14:59 22:59 Intake Total 100 / 3020 460 / 460 240 / 700 Output Total 700 / 2100 300 / 300 500 / 800 Balance -600 / 920 160 / 160 -260 / -100 Weight last 48 hrs Weight 103.873 kg Weight 102.058 kg Weight 102.058 kg Physical Exam 2 Const: COMMON NORMALS: patient oriented x3 and alert GENERAL APPEARANCE: c ooperative ORIENTATION/CONSCIOUSNESS: Yes awake HENMT: COMMON NORMALS: oropharynx normal Neck/C-Spine: COMMON NORMALS: no JVD Resp: COMMON NORMALS: normal respiratory effort and clear to auscultation bilaterally AUSCULTATION: clear to auscultation bilaterally Cardio: COMMON NORMALS: no JVD, regular rhythm, S1 normal heart sound present, S2 normal heart sound present and No murmurs present (Cardio) RHYTHM: regular rhythm HEART SOUNDS: S1 normal heart sound present and S2 normal heart sound present GI: COMMON NORMALS: Normal to inspection, nondistended, normoactive bowel sounds present, Soft to palpation and non-tender PALPATION: Yes Soft to palpation Extremity: COMMON NORMALS: no joint enlargement and no pedal edema OTHER: Right lower extremity in postsurgical dressing. Neuro: COMMON NORMALS: patient oriented x3 and moves all extremities S ENSORIUM/ORIENTATION: Yes alert Skin: COMMON NORMALS: no rashes or lesions noted GENERAL SKIN EXAM: no rashes or lesions noted Urinary Catheter Management: Jerome: Cath Placed During This Visit: yes, but has since been removed by the nurse Reason for Continuing Indwelling Catheter: Perioperative Use in Selected Surgeries Urinary Catheter Date of Insertion: 06/15/24 Urinary Catheter Time of Insertion: 09:15 Date Urinary Catheter Removed: 06/16/24 Time Urinary Catheter Discontinued: 05:38 Data 06/16/24 05:17 06/16/24 05:17 A&P Assessment and plan (1) Inappropriate sinus tachycardia: Inappropriate sinus tachycardia, low 100-110, up as high as 130s this morning, symptomatically he does not have any new complaints, does not feel any different than usual. Does have a cold sore and voice is somewhat hoarse. Discussed with him additional assessment with viral panel, additional monitoring. Further assessment with CT angiogram chest in case of persistence and lack of other explanation. Additional monitoring overnight. Requested and reviewed respiratory viral panel which was negative. Requested CT angiogram chest, assess for any PE. Other consideration possibly recovery from anesthesia, possible aspiration pneumonitis. Reviewing saturation, sats 93% on room air. He is not on any beta-blockers or calcium channel blockers at home. He does not drink any alcohol, no surreptitious substance use. Otherwise possible effect of bupropion? Appears to be doing okay in terms of renal function. Discussed with director of casework, nursing. (2) Status post right knee replacement: Discussed with orthopedic surgery, reviewed vitals, CBC, BMP, discussed with director of casework, PT, he has done well. From orthopedic standpoint he is ready for discharge as per discussion. Reviewed orthopedic note. Encouraged incentive spirometer use. Jerome catheter has been removed. On aspirin for VTE prophylaxis. Follow-up with orthopedics as per instructions. Discharge delayed as the case with him due to finding of inappropriate sinus tachycardia as above. Discussed risk of opioid pain medication. Plan DM2 with hyperglycemia: Reviewed blood glucose, moderately hyperglycemic, will increase Lantus dose to his home dose of 22 units. Continue sliding scale insulin. Consistent carbohydrate diet. SEEMA: Nightly CPAP. Requested. He has his own machine. HTN: Blood pressure somewhat elevated in PACU, but is doing better now 122/87. Hyperkalemia: Noted resolved. Recheck chemistry. Mild intermittent asthma: On Advair at home. Continue budesonide low-dose twice daily in the hospital. Albuterol as needed. Attestations 2 Medical Necessity Statement*: Continue hospitalization for additional assessment of inappropriate sinus tachycardia, further assessment for possible PE status post right knee TKA. and High MDM includes amount and/or complexity of data reviewed/ordered [ previous or external records, resulted lab(s)/test(s), ordered lab(s)/test(s) and other healthcare professional discussion] as documented Diagnoses Inappropriate sinus tachycardia I47.11 Status post right knee replacement Z96.651
--- NOTE | 2024-06-16 21:45 | PC.NURSE ---
Blood sugar 467 at 21:05.
[2024-06-16] MEDS: iohexol 350 mg/mL 500 mL Btl (per mL) IV (22:25)
[2024-06-17] VITALS (8 sets, daily range): BP systolic 103–143; BP diastolic 63–90; PULSE 95–105; RESP 16–18; TEMP 36.4–36.9; O2SAT 91–95
--- NOTE | 2024-06-17 02:47 | PC.NURSE ---
Patient's heart rate up to 130s sinus tachycardia when up to bathroom.
[2024-06-17] MEDS: oxyCODONE 5 mg IR Tab/Cap PO ×2 (03:02→08:49)
[2024-06-17 04:39] LABS: Basophils % 0.3 %; Eosinophils # 0.1 10^3/uL (0.0-0.8); Eosinophils % 1.3 %; Hematocrit 31.7 % (37-53); Lymphocytes # 2.1 10^3/uL (0.8-4.8); Lymphocytes % 19.2 %; Mean Corpuscular HGB Conc 33.8 g/dL (30-55); Mean Corpuscular Hemoglobin 30.3 pg (27-33); Mean Corpuscular Volume 89.8 fl (82-101); Mean Platelet Volume 9.7 fL (7.4-10.4); Monocytes # 0.9 10^3/uL (0.2-0.9); Monocytes % 8.4 %; Neutrophils # 7.74 10^3/uL (1.8-7.7); Neutrophils % 70.3 %; Nucleated Red Blood Cells % 0 %; Platelet Count 190 10^3/cmm (157-399); Red Blood Count 3.53 10^6/uL (3.85-5.65); Red Cell Distribution Width 12.4 % (12.1-15.1)
[2024-06-17 05:00] LABS: Alanine Aminotransferase 15 U/L (0-41); Albumin Level 3.6 g/dL (3.5-5.2); Alkaline Phosphatase 65 U/L (40-130); Anion Gap 14.1 (5-19); Aspartate Amino Transferase 13 U/L (0-40); Blood Urea Nitrogen 15 mg/dL (6-20); Calcium 8.3 mg/dL (8.5-10.5); Carbon Dioxide 25 mmol/L (22-29); Chloride 104 mmol/L (98-107); Creatinine Clr Calc Pharmacy 114.4051; Globulin 2.6 g/dL (1.3-4.6); Glucose 218 mg/dL (65-115); Osmolality Calculated 295 mOsm/kg (285-295); Potassium 4.1 mmol/L (3.5-5.1); Sodium 139 mmol/L (136-145); Total Bilirubin 0.4 mg/dL (0.15-1.2); Total Protein 6.2 g/dL (6.6-8.7)
[2024-06-17] MEDS: buPROPion XL (24 HR) 150 mg Tablet PO (05:41)
[2024-06-17] MEDS: acetaminophen 500 mg Tablet 1000 MG PO (05:41)
[2024-06-17 06:31] LABS: Glucose Point of Care 219 mg/dL (70-110)
[2024-06-17] MEDS: insulin lispro 100 unit/1 mL SUBCUT ×2 (07:27→11:57)
[2024-06-17] MEDS: lisinopril 10 mg Tablet PO (08:48)
[2024-06-17] MEDS: sennosides-docusate Tablet 2 TAB PO (08:48)
[2024-06-17] MEDS: CELEcoxib 200 mg Capsule PO (08:48)
[2024-06-17] MEDS: montelukast sodium 10 mg Tablet PO (08:48)
[2024-06-17] MEDS: multivitamin therapeutic Tablet 1 TAB PO (08:48)
[2024-06-17] MEDS: iron polysaccharide complex 150 mg Capsule PO (08:48)
[2024-06-17] MEDS: cholecalciferol (vitamin D3) 1,000 unit Tablet 1000 UNIT PO (08:48)
[2024-06-17] MEDS: aspirin 325 mg EC Tablet PO (08:49)
[2024-06-17] MEDS: calcium carbonate 500 mg Chew Tablet 1000 MG PO (08:49)
[2024-06-17] MEDS: insulin glargine 100 units/1 mL 22 UNIT SUBCUT (08:52)
--- NOTE | 2024-06-17 10:37 | P.DS_ITS ---
Discharge Providers Date of Admission: 06/15/24 12:31 Date of Discharge: June 17, 2024 Attending Provider at Admission: Nida Hendricks MD Attending Provider at Discharge: Nida Hendricks MD Primary Care Provider: Yolanda Baez MD Diagnoses at Discharge Discharge Diagnosis (1) Inappropriate sinus tachycardia: Status: Acute (2) Status post right knee replacement: Status: Acute Reason for Visit Reason for Visit: M17.11 Hospital Course Hospital Course Pleasant 54-year-old gentleman who underwent elective TKA of the right knee due to primary osteoarthritis with severe degenerative disease, valgus deformity, with uneventful procedure, 350 mL estimated blood loss, recovered well but with finding of unexplained sinus tachycardia. He did not have any symptoms to explain his tachycardia although did have mild dysphonia, herpes labialis on his upper lip, possibly recovering after recent acute viral illness. Viral panel was obtained and was negative, not suggestive of continued infection. He does report some chronic sinus tachycardia in the 90s, although during hospitalization heart rates noted going into 100s-100 teens. She did not have any shortness of breath, was working with incentive spirometry, remained afebrile, without leukocytosis, denied any cough, chest pain or discomfort. Without respiratory, GI, urologic, and given injury or other complaints. With slow to improve tachycardia after recovery from anesthesia additionally assessed with CTA chest which did not show central PE. Incidentally found right upper lobe pulmonary nodule of 10 mm in size. He was additionally monitored overnight with further gradual improvement in sinus tachycardia down closer to baseline of mid 90s. He remained asymptomatic. Discussed with him mild additional edema, and going down to 10.7 postoperatively. He otherwise felt well, worked with therapy and was able to ambulate without any issues. He felt that he would like to proceed with discharge home, cautiously, as per discussion she knows to seek medical attention in case of any new concerning symptoms. He continues on aspirin as per orthopedics for additional VTE prophylaxis postoperatively. He will follow-up with primary provider for further reassessment of incidentally found pulmonary nodule. Due to Wellbutrin possibly causing tachyarrhythmia, as per discussion with him dose was decreased down to 100 mg. Please reassess condition, with cardiac risk factors, conotinue to optimize, consider further nonurgent cardiac risk stratification. Physical Exam Const: COMMON NORMALS: patient oriented x3 and alert GENERAL APPEARANCE: cooperative ORIENTATION/CONSCIOUSNESS: Yes awake HENMT: COMMON NORMALS: oropharynx normal Neck/C-Spine: COMMON NORMALS: no JVD Resp: COMMON NORMALS: normal respiratory effort and clear to auscultation bilaterally AUSCULTATION: clear to auscultation bilaterally Cardio: COMMON NORMALS: no JVD, regular rhythm, S1 normal heart sound present, S2 normal heart sound present and No murmurs present (Cardio) RHYTHM: regular rhythm HEART SOUNDS: S1 normal heart sound present and S2 normal heart sound present GI: COMMON NORMALS: Normal to inspection, nondistended, normoactive bowel sounds present, Soft to palpation and non-tender PALPATION: Yes Soft to palpation Extremity: COMMON NORMALS: no joint enlargement and no pedal edema OTHER: Right lower extremity in postsurgical dressing. Neuro: COMMON NORMALS: patient oriented x3 and moves all extremities SENSORIUM/ORIENTATION: Yes alert Skin: COMMON NORMALS: no rashes or lesions noted GENERAL SKIN EXAM: no rashes or lesions noted Urinary Catheter Management: Jerome: Cath Placed During This Visit: yes, but has since been removed by the nurse Reason for Continuing Indwelling Catheter: Perioperative Use in Selected Surgeries Urinary Catheter Date of Insertion: 06/15/24 Urinary Catheter Time of Insertion: 09:15 Date Urinary Catheter Removed: 06/16/24 Time Urinary Catheter Discontinued: 05:38 Discharge Data Studies Completed and Pending Completed Studies During Hospitalization Category Date Time Status CTA chest [CT angio chest PE protcl [id number]] Routine Cat Scan 06/16/24 15:04 Completed XR knee RT 3V* [id number] Urgent Exams 06/15/24 12:32 Completed Pending at discharge Category Date Time Status Basic Metabolic Panel AM LABS Lab 06/18/24 04:00 Ordered Radiology Impressions Knee X-Ray 06/15/24 12:32 Impression: Stable right knee arthroplasty. Chest CTA 06/16/24 15:04 IMPRESSION: 1. No large central pulmonary embolism although limited study due to suboptimal bolus timing. No acute thoracic aortic process. 2. Right upper lobe pulmonary nodule can be followed up based on Fleischner criteria in keeping with the size of the nodule and patient risk factors. Laboratory Results WBC 11.00 10^3/uL (3.29-11.43) 06/17/24 04:14 RBC 3.53 10^6/uL (3.85-5.65) L 06/17/24 04:14 Hgb 10.70 g/dL (11.27-16.99) L 06/17/24 04:14 Hct 31.7 % (37-53) L 06/17/24 04:14 MCV 89.8 fl (82-101) 06/17/24 04:14 MCH 30.3 pg (27-33) 06/17/24 04:14 MCHC 33.8 g/dL (30-55) 06/17/24 04:14 RDW 12.4 % (12.1-15.1) 06/17/24 04:14 Plt Count 190 10^3/cmm (157-399) 06/17/24 04:14 MPV 9.7 fL (7.4-10.4) 06/17/24 04:14 Neut % (Auto) 70.3 % 06/17/24 04:14 Lymph % (Auto) 19.2 % 06/17/24 04:14 [place] % (Auto) 8.4 % 06/17/24 04:14 Eos % (Auto) 1.3 % 06/17/24 04:14 Baso % (Auto) 0.3 % 06/17/24 04:14 Neut # (Auto) 7.74 10^3/uL (1.8-7.7) H 06/17/24 04:14 Lymph # (Auto) 2.1 10^3/uL (0.8-4.8) 06/17/24 04:14 [place] # (Auto) 0.9 10^3/uL (0.2-0.9) 06/17/24 04:14 Eos # (Auto) 0.1 10^3/uL (0.0-0.8) 06/17/24 04:14 Baso # (Auto) 0.0 10^3/uL (0.0-0.1) 06/17/24 04:14 Nucleated RBC % (auto) 0 % 06/17/24 04:14 Nucleated RBCs # 0.0 /100WBC 06/17/24 04:14 Sodium 139 mmol/L (136-145) 06/17/24 04:14 Potassium 4.1 mmol/L (3.5-5.1) 06/17/24 04:14 Chloride 104 mmol/L (98-107) 06/17/24 04:14 Carbon Dioxide 25 mmol/L (22-29) 06/17/24 04:14 Anion Gap 14.1 (5-19) 06/17/24 04:14 BUN 15 mg/dL (6-20) 06/17/24 04:14 Creatinine 0.8 mg/dL (0.7-1.2) 06/17/24 04:14 GFR Calculation 100.0 mL/min (90-130) 06/17/24 04:14 Glucose 218 mg/dL (65-115) H 06/17/24 04:14 POC Glucose 219 mg/dL (70-110) H 06/17/24 06:27 Calculated Osmolality 295 mOsm/kg (285-295) 06/17/24 04:14 Calcium 8.3 mg/dL (8.5-10.5) L 06/17/24 04:14 Total Bilirubin 0.4 mg/dL (0.15-1.2) 06/17/24 04:14 AST 13 U/L (0-40) 06/17/24 04:14 ALT 15 U/L (0-41) 06/17/24 04:14 Alkaline Phosphatase 65 U/L (40-130) 06/17/24 04:14 Total Protein 6.2 g/dL (6.6-8.7) L 06/17/24 04:14 Albumin 3.6 g/dL (3.5-5.2) 06/17/24 04:14 Globulin 2.6 g/dL (1.3-4.6) 06/17/24 04:14 TSH 0.85 uIU/mL (0.27-4.20) 06/16/24 05:17 Adenovirus (PCR) Not detected (NOT DETECT) 06/16/24 12:19 C. pneumoniae DNA (PCR) Not detected (NOT DETECT) 06/16/24 12:19 Coronavirus 229E (PCR) Not detected (NOT DETECT) 06/16/24 12:19 Human Metapneumovir PCR Not detected (NOT DETECT) 06/16/24 12:19 Influenza A (H1) PCR Not detected (NOT DETECT) 06/16/24 12:19 Influ A (H1/09) PCR Not detected (NOT DETECT) 06/16/24 12:19 Influenza A (H3) PCR Not detected (NOT DETECT) 12/18/24 12:19 Influenza Type A (PCR) Not detected (NOT DETECT) 06/16/24 12:19 Influenza Type B (PCR) Not detected (NOT DETECT) 06/16/24 12:19 M. pneumoniae (PCR) Not detected (NOT DETECT) 06/16/24 12:19 Parainfluenza 1 (PCR) Not detected (NOT DETECT) 06/16/24 12:19 Parainfluenza 2 (PCR) Not detected (NOT DETECT) 06/16/24 12:19 Parainfluenza 3 (PCR) Not detected (NOT DETECT) 06/16/24 12:19 Parainfluenza 4 (PCR) Not detected (NOT DETECT) 06/16/24 12:19 RSV Type A (PCR) Not detected (NOT DETECT) 06/16/24 12:19 RSV Type B (PCR) Not detected (NOT DETECT) 06/16/24 12:19 Entero/Rhino (PCR) Not detected (NOT DETECT) 06/16/24 12:19 SARS-CoV-2 (PCR) Not detected (NOT DETECT) 06/16/24 12:19 Vitals Last Vital Signs Temp 97.5 F L 06/17/24 08:28 Pulse 105 H 06/17/24 08:28 Resp 16 06/17/24 08:49 BP 143/90 06/17/24 08:28 Pulse Ox 91 06/17/24 08:28 O2 Del Method Room Air 06/17/24 08:28 Discharge Plan Discharge Patient Disposition: Home Condition: Stable Prescriptions: New acetaminophen 500 mg Tablet 1,000 mg PO Q8H 15 Days Qty: 90 0RF aspirin 325 mg Tablet,Delayed Release (Dr/Ec) 325 mg PO DAILY 30 Days Qty: 30 0RF celecoxib 200 mg Capsule 200 mg PO 1XD 30 Days Qty: 30 0RF bupropion HCl 100 mg tablet sustained-release 12 hr 100 mg PO DAILY Qty: 90 0RF oxycodone 5 mg Tablet 5 - 10 mg PO Q4H PRN (Reason: Moderate To Severe Pain) 7 Days Qty: 40 0RF Continued Ozempic 1 mg/dose (4 mg/3 mL) pen injector 4 mg SUBCUT .WEEKLY. fluticasone propion-salmeterol [Advair Diskus] 100-50 mcg/dose blister with device 1 inh inhalation DAILY montelukast 10 mg tablet 10 mg PO DAILY simvastatin 20 mg tablet 20 mg PO DAILY lisinopril 10 mg tablet 10 mg PO DAILY metformin 500 mg tablet 500 mg PO BID insulin degludec [Tresiba FlexTouch U-100] 100 unit/mL (3 mL) insulin pen 22 unit SUBCUT DAILY multivitamin Tablet 1 tab PO DAILY vitamin B complex [Vitamins B Complex] Capsule 1 cap PO DAILY albuterol sulfate [ProAir HFA] 90 mcg/actuation HFA aerosol inhaler 2 puff inhalation Q6H PRN (Reason: Allergy Symptoms) Discontinued bupropion HCl [Wellbutrin XL] 150 mg tablet extended release 24 hr 150 mg PO QAM Discharge Orders: Discharge Order (Routine); Ordered 06/16/24 Ordered By: Nida Hendricks Other Ambulatory Orders: Physical Therapy Eval and Treat Outpatient (Order) Timeframe: 3 Days Facility: [facility] - Location: Physical Therapy Ordered By: Nida Hendricks Referrals: [facility] Outpatient Therapy [Outside] Yolanda Baez MD [Primary Care Provider] - 06/21/24 11:00 am Nida Hendricks MD [Physician] - 06/28/24 2:45 pm Discharge Diet: Advance as tolerated and Usual diet Discharge Activity: Increase activity as tolerated, Limit activity as instructed, Use walker/crutches as instructed and As per PT/OT instructions Patient Instructions: Bupropion (By mouth), Aspirin (By mouth), Oxycodone, Rapid Release (By mouth), Celecoxib (By mouth), Acute Wound Care (DC), Total Knee Replacement (GEN), Joint Replacement Stoplight, Opioid Safety, Post Anesthesia Care Activity Restrictions/Additional Instructions: Elevate right lower extremity. Ice to knee. Range of motion, strengthening, and gait training per physical therapy. Weightbearing as tolerated. You may shower and get your dressing wet as long as it is not lifted up or leaking. If the dressing comes off, you may shower just do not soak your knee in standing water. Due to increased resting heart rate we are decreasing your Wellbutrin dose as discussed down to 100 mg dose. Please follow-up with your primary doctor for reassessment of the increased resting heart rate, and reassessment of the right knee after surgery both with primary doctor and orthopedics. Seek medical attention in case of any worsening or new concerning symptoms. Please follow-up with your primary doctor regarding incidentally noted 10 mm right upper lobe pulmonary nodule. Discharge Attestations Time Spent in Discharge Care*: greater than 30 min Quality Metrics Clinical Quality Measures [ No reported AMI, CVA or VTE this stay] Coding Level of Care Code 67033 Total time (in minutes) for Discharge: 50 Diagnoses Inappropriate sinus tachycardia I47.11 Status post right knee replacement Z96.651
--- NOTE | 2024-06-17 11:21 | PM.DCS ---
Discharge Providers Date of Admission: 06/15/24 12:31 Date of Discharge: June 17, 2024 Attending Provider at Admission: Nida Hendricks MD Attending Provider at Discharge: Nida Hendricks MD Primary Care Provider: Yolanda Baez MD Diagnoses at Discharge Discharge Diagnosis (1) Status post total right knee replacement not using cement: Status: Acute Permanent problem details: Date of procedure: June 15, 2024 Diagnosis: Primary osteoarthritis right knee with varus deformity Procedure done: Right total knee arthroplasty with Boy guidance Implants: The [place] total knee system with a size 5 triathlon beaded cruciate retaining femur right, a triathlon titanium tibial component size 4 beaded, a triathlon X3 tibial bearing CS insert size 4 x 11 mm and a beaded triathlon titanium asymmetric patella size 35 x 10 mm (2) Inappropriate sinus tachycardia: Status: Acute (3) Primary osteoarthritis of right knee: Status: Acute Reason for Visit Reason for Visit: M17.11 Brief History: This 54-year-old gentleman presented today for right total knee arthroplasty. He was seen in the clinic preoperatively. He had significant limitations in his activities of daily living and worsening of the pain over several years. Conservative management including anti-inflammatory medications, oral analgesics, home physical therapy, and strengthening as well as prior knee braces were not of benefit. After discussion, the patient wished to proceed with total knee arthroplasty. Risks and complications were discussed with him. Consents were signed in the office and questions were answered. Physical Exam Const: COMMON NORMALS: no acute distress, average body habitus, patient oriented x3 and alert GENERAL APPEARANCE: cooperative and comfortable ORIENTATION/CONSCIOUSNESS: Yes awake HENMT: COMMON NORMALS: normocephalic and atraumatic HEAD & SCALP: normocephalic and atraumatic Eye: GENERAL EYE: appearance normal, both eyes and all related structures Chest: COMMONS NORMALS: normal inspection of the chest Resp: COMMON NORMALS: normal respiratory effort EFFORT & INSPECTION: Yes able to speak in complete sentences and Yes symmetric chest movement Extremity: RIGHT LOWER EXTREMITY: Yes knee joint (Yesterday, Dressing removed, minimal ecchymosis) Right knee: Yes inspection (Swelling but no pain to palpation), Yes ROM (Not evaluated) and Yes neurovascular exam (Intact distally) Neuro: COMMON NORMALS: patient oriented x3 SENSORIUM/ORIENTATION: Yes alert Psych: COMMON NORMALS: mental status grossly normal APPEARANCE: Yes grossly normal ATTITUDE: Yes calm and Yes engaged ATTENTION/CONCENTRATION: Yes attention grossly intact Skin: COMMON NORMALS: no rashes or lesions noted GENERAL SKIN EXAM: no rashes or lesions noted Urinary Catheter Management: Jerome: Cath Placed During This Visit: yes, but has since been removed by the nurse Reason for Continuing Indwelling Catheter: Perioperative Use in Selected Surgeries Urinary Catheter Date of Insertion: 06/15/24 Urinary Catheter Time of Insertion: 09:15 Date Urinary Catheter Removed: 06/16/24 Time Urinary Catheter Discontinued: 05:38 Discharge Data Studies Completed and Pending Completed Studies During Hospitalization Category Date Time Status CTA chest [CT angio chest PE protcl [id number]] Routine Cat Scan 06/16/24 15:04 Completed XR knee RT 3V* [id number] Urgent Exams 06/15/24 12:32 Completed Pending at discharge Category Date Time Status Basic Metabolic Panel AM LABS Lab 06/18/24 04:00 Ordered Radiology Impressions Knee X-Ray 06/15/24 12:32 Impression: Stable right knee arthroplasty. Chest CTA 06/16/24 15:04 IMPRESSION: 1. No large central pulmonary embolism although limited study due to suboptimal bolus timing. No acute thoracic aortic process. 2. Right upper lobe pulmonary nodule can be followed up based on Fleischner criteria in keeping with the size of the nodule and patient risk factors. Laboratory Results WBC 11.00 10^3/uL (3.29-11.43) 06/17/24 04:14 RBC 3.53 10^6/uL (3.85-5.65) L 06/17/24 04:14 Hgb 10.70 g/dL (11.27-16.99) L 06/17/24 04:14 Hct 31.7 % (37-53) L 06/17/24 04:14 MCV 89.8 fl (82-101) 06/17/24 04:14 MCH 30.3 pg (27-33) 06/17/24 04:14 MCHC 33.8 g/dL (30-55) 06/17/24 04:14 RDW 12.4 % (12.1-15.1) 06/17/24 04:14 Plt Count 190 10^3/cmm (157-399) 06/17/24 04:14 MPV 9.7 fL (7.4-10.4) 06/17/24 04:14 Neut % (Auto) 70.3 % 06/17/24 04:14 Lymph % (Auto) 19.2 % 06/17/24 04:14 [place] % (Auto) 8.4 % 06/17/24 04:14 Eos % (Auto) 1.3 % 06/17/24 04:14 Baso % (Auto) 0.3 % 06/17/24 04:14 Neut # (Auto) 7.74 10^3/uL (1.8-7.7) H 06/17/24 04:14 Lymph # (Auto) 2.1 10^3/uL (0.8-4.8) 06/17/24 04:14 [place] # (Auto) 0.9 10^3/uL (0.2-0.9) 06/17/24 04:14 Eos # (Auto) 0.1 10^3/uL (0.0-0.8) 06/17/24 04:14 Baso # (Auto) 0.0 10^3/uL (0.0-0.1) 06/17/24 04:14 Nucleated RBC % (auto) 0 % 06/17/24 04:14 Nucleated RBCs # 0.0 /100WBC 06/17/24 04:14 Sodium 139 mmol/L (136-145) 06/17/24 04:14 Potassium 4.1 mmol/L (3.5-5.1) 06/17/24 04:14 Chloride 104 mmol/L (98-107) 06/17/24 04:14 Carbon Dioxide 25 mmol/L (22-29) 06/17/24 04:14 Anion Gap 14.1 (5-19) 06/17/24 04:14 BUN 15 mg/dL (6-20) 06/17/24 04:14 Creatinine 0.8 mg/dL (0.7-1.2) 06/17/24 04:14 GFR Calculation 100.0 mL/min (90-130) 06/17/24 04:14 Glucose 218 mg/dL (65-115) H 06/17/24 04:14 POC Glucose 219 mg/dL (70-110) H 06/17/24 06:27 Calculated Osmolality 295 mOsm/kg (285-295) 06/17/24 04:14 Calcium 8.3 mg/dL (8.5-10.5) L 06/17/24 04:14 Total Bilirubin 0.4 mg/dL (0.15-1.2) 06/17/24 04:14 AST 13 U/L (0-40) 06/17/24 04:14 ALT 15 U/L (0-41) 06/17/24 04:14 Alkaline Phosphatase 65 U/L (40-130) 06/17/24 04:14 Total Protein 6.2 g/dL (6.6-8.7) L 06/17/24 04:14 Albumin 3.6 g/dL (3.5-5.2) 06/17/24 04:14 Globulin 2.6 g/dL (1.3-4.6) 06/17/24 04:14 TSH 0.85 uIU/mL (0.27-4.20) 06/16/24 05:17 Adenovirus (PCR) Not detected (NOT DETECT) 06/16/24 12:19 C. pneumoniae DNA (PCR) Not detected (NOT DETECT) 06/16/24 12:19 Coronavirus 229E (PCR) Not detected (NOT DETECT) 06/16/24 12:19 Human Metapneumovir PCR Not detected (NOT DETECT) 06/16/24 12:19 Influenza A (H1) PCR Not detected (NOT DETECT) 06/16/24 12:19 Influ A (H1/09) PCR Not detected (NOT DETECT) 06/16/24 12:19 Influenza A (H3) PCR Not detected (NOT DETECT) 06/16/24 12:19 Influenza Type A (PCR) Not detected (NOT DETECT) 06/16/24 12:19 Influenza Type B (PCR) Not detected (NOT DETECT) 06/16/24 12:19 M. pneumoniae (PCR) Not detected (NOT DETECT) 06/16/24 12:19 Parainfluenza 1 (PCR) Not detected (NOT DETECT) 06/16/24 12:19 Parainfluenza 2 (PCR) Not detected (NOT DETECT) 06/16/24 12:19 Parainfluenza 3 (PCR) Not detected (NOT DETECT) 06/16/24 12:19 Parainfluenza 4 (PCR) Not detected (NOT DETECT) 06/16/24 12:19 RSV Type A (PCR) Not detected (NOT DETECT) 06/16/24 12:19 RSV Type B (PCR) Not detected (NOT DETECT) 06/16/24 12:19 Entero/Rhino (PCR) Not detected (NOT DETECT) 06/16/24 12:19 SARS-CoV-2 (PCR) Not detected (NOT DETECT) 06/16/24 12:19 Vitals Last Vital Signs Temp 97.5 F L 06/17/24 08:28 Pulse 105 H 06/17/24 08:28 Resp 16 06/17/24 08:49 BP 143/90 06/17/24 08:28 Pulse Ox 91 06/17/24 08:28 O2 Del Method Room Air 06/17/24 08:28 Discharge Plan Discharge Patient Disposition: Home Condition: Stable Prescriptions: New acetaminophen 500 mg Tablet 1,000 mg PO Q8H 15 Days Qty: 90 0RF aspirin 325 mg Tablet,Delayed Release (Dr/Ec) 325 mg PO DAILY 30 Days Qty: 30 0RF celecoxib 200 mg Capsule 200 mg PO 1XD 30 Days Qty: 30 0RF bupropion HCl 100 mg tablet sustained-release 12 hr 100 mg PO DAILY Qty: 90 0RF oxycodone 5 mg Tablet 5 - 10 mg PO Q4H PRN (Reason: Moderate To Severe Pain) 7 Days Qty: 40 0RF Continued Ozempic 1 mg/dose (4 mg/3 mL) pen injector 4 mg SUBCUT .WEEKLY. fluticasone propion-salmeterol [Advair Diskus] 100-50 mcg/dose blister with device 1 inh inhalation DAILY montelukast 10 mg tablet 10 mg PO DAILY simvastatin 20 mg tablet 20 mg PO DAILY lisinopril 10 mg tablet 10 mg PO DAILY metformin 500 mg tablet 500 mg PO BID insulin degludec [Tresiba FlexTouch U-100] 100 unit/mL (3 mL) insulin pen 22 unit SUBCUT DAILY multivitamin Tablet 1 tab PO DAILY vitamin B complex [Vitamins B Complex] Capsule 1 cap PO DAILY albuterol sulfate [ProAir HFA] 90 mcg/actuation HFA aerosol inhaler 2 puff inhalation Q6H PRN (Reason: Allergy Symptoms) Discontinued bupropion HCl [Wellbutrin XL] 150 mg tablet extended release 24 hr 150 mg PO QAM Discharge Orders: Discharge Order (Routine); Ordered 06/16/24 Ordered By: Nida Hendricks Other Ambulatory Orders: Physical Therapy Eval and Treat Outpatient (Order) Timeframe: 3 Days Facility: [facility] - Location: Physical Therapy Ordered By: Nida Hendricks Referrals: [facility] Outpatient Therapy [Outside] Yolanda Baez MD [Primary Care Provider] - 06/21/24 11:00 am Nida Hendricks MD [Physician] - 06/28/24 2:45 pm Discharge Diet: Advance as tolerated and Usual diet Discharge Activity: Increase activity as tolerated, Limit activity as instructed, Use walker/crutches as instructed and As per PT/OT instructions Patient Instructions: Bupropion (By mouth), Aspirin (By mouth), Oxycodone, Rapid Release (By mouth), Celecoxib (By mouth), Acute Wound Care (DC), Total Knee Replacement (GEN), Joint Replacement Stoplight, Opioid Safety, Post Anesthesia Care Activity Restrictions/Additional Instructions: Elevate right lower extremity. Ice to knee. Range of motion, strengthening, and gait training per physical therapy. Weightbearing as tolerated. You may shower and get your dressing wet as long as it is not lifted up or leaking. If the dressing comes off, you may shower just do not soak your knee in standing water. Due to increased resting heart rate we are decreasing your Wellbutrin dose as discussed down to 100 mg dose. Please follow-up with your primary doctor for reassessment of the increased resting heart rate, and reassessment of the right knee after surgery both with primary doctor and orthopedics. Seek medical attention in case of any worsening or new concerning symptoms. Please follow-up with your primary doctor regarding incidentally noted 10 mm right upper lobe pulmonary nodule. Discharge Attestations Time Spent in Discharge Care*: greater than 30 min Specific Discharge Activities: educating patient, documenting/other paperwork and evaluating patient/reviewing data Quality Metrics Clinical Quality Measures [ No reported AMI, CVA or VTE this stay] Coding Level of Care Code Acute Code for Chg Fwd Diagnoses Status post total right knee replacement not using cement Z96.651 Inappropriate sinus tachycardia I47.11 Primary osteoarthritis of right knee M17.11
[2024-06-17 11:56] LABS: Glucose Point of Care 200 mg/dL (70-110)
[2024-06-17] MEDS: flu vacc pf 24-25 (6 mos+) SYRINGE 45 MCG IM (12:31)
== END 2024-06-17 12:37 | disposition home or self-care (01) ==
LOC: MEDSURG 12:34
PROVIDERS: Internal Medicine; Admitting Provider Specialist; PCP Family Medicine; Visit Provider Specialist
PROC: 8E0Y0CZ Robotic Assisted Procedure of Lower Extremity, Open Approach (ICD-10-PCS; CPT 27447; 2024-06-15 08:05)
DX: M17.11 Unilateral primary osteoarthritis, right knee (principal); M21.161 Varus deformity, not elsewhere classified, right knee; Z23 Encounter for immunization; I47.11 Inappropriate sinus tachycardia, so stated; E11.65 Type 2 diabetes mellitus with hyperglycemia; Z79.4 Long term (current) use of insulin; G47.33 Obstructive sleep apnea (adult) (pediatric); I10 Essential (primary) hypertension; J45.20 Mild intermittent asthma, uncomplicated; E11.9 Type 2 diabetes mellitus without complications; E78.5 Hyperlipidemia, unspecified; E66.01 Morbid (severe) obesity due to excess calories; Z68.39 Body mass index [BMI] 39.0-39.9, adult
CPT/HCPCS: 20985; 27447; 36415; 36416; 51702; 71275; 73562; 80048; 80053; 82962; 84443; 85025; 87486; 87581; 87633; 90471; 90686; 93005; 96372; 97110; 97116; 97161; 97166; C1776; G0378; J0131; J0690; J1100; J1815; J2250; J2704; J2795; J3010; J3370; J3490; J7030

== ENCOUNTER 2024-06-21 06:58 | Outpatient (RCR) | payer BC, SELFPAY | END 2024-06-29 23:59 | disposition home or self-care (01) | LOC: SPT 06:58 | PROVIDERS: Visit Provider Specialist | DX: M17.11 Unilateral primary osteoarthritis, right knee (principal) | CPT/HCPCS: 97110; 97161 ==

== ENCOUNTER → 2024-06-28 14:49 | Outpatient (BNVA) | payer BC, SELFPAY | PROVIDERS: Visit Provider Specialist | DX: Z96.651 Presence of right artificial knee joint (principal); M17.11 Unilateral primary osteoarthritis, right knee | CPT/HCPCS: 73560; 73565 ==

== ENCOUNTER 2024-06-30 06:00 | Outpatient (RCR) | payer BC, SELFPAY | END 2024-07-30 23:59 | disposition home or self-care (01) | LOC: SPT 06:00 | PROVIDERS: Visit Provider Specialist | DX: M17.11 Unilateral primary osteoarthritis, right knee (principal) | CPT/HCPCS: 97110 ==

== ENCOUNTER 2024-07-02 10:22 | Outpatient (CLI) | payer BC, SELFPAY ==
--- NOTE | 2024-07-02 10:28 | PETR_ITS ---
PROCEDURE INFORMATION: Exam: PET/CT Skull Base to Mid-thigh Exam date and time: 07/02/2024 11:24 AM Age: 54 years old Clinical indication: Abnormal findings; Solitary pulmonary nodule; Prior surgery; Surgery date: 1-6 months; Surgery type: Right knee LABS AND CLINICAL REPORTS: Glucose: 169 mg/dl; no provided history of diabetes mellitus Treatment strategy for malignancy (PET staging): Initial Staging (PI) TECHNIQUE: Imaging protocol: Following at least four-hour fasting and following the injection of radiopharmaceutical, low dose CT images were obtained. Then, PET images were obtained. Attenuation corrected images were constructed using the CT scan. Fused images of PET and CT were reviewed. The standardized uptake values (SUV) reported below are maximum values within a region of interest, expressed in gm/ml. Exam includes orbital meatal line to mid-thigh. SUV normalization method: BodyWeight Radiopharmaceutical: 12.19 mCi F-18 FDG (Fluorodeoxyglucose), IV. Time of imaging post radiopharmaceutical administration: 46 minutes Injection site: right ac COMPARISON: CT angio chest PE protcl [id number] 06/16/2024 10:15 PM, right knee x-ray series 06/28/2024 FINDINGS: Brain: Visualized brain has normal physiologic uptake. Paranasal sinuses: Moderate lobulated mucosal thickening of the right maxillary sinus is present, with evidence of uptake in the maxillary sinus wall, SUV max 4.0 on PET image 19. Additional regions of mild uptake are identified within areas of moderate mucosal thickening within the ethmoid sinuses and mild left maxillary sinus mucosal thickening. Small to moderate fluid levels in the sphenoid sinus are present. Salivary glands: Asymmetric uptake in the region of the right parotid gland is identified, SUV max 4.9 on PET image 32. This region is partially obscured by streak artifact on the CT images, however, there appears to be an asymmetric region of soft tissue density nodularity in the region of the lateral right parotid gland measuring approximately 2 cm in diameter on series 201, image 601. Pharynx: No abnormal uptake. Larynx: No abnormal uptake. Lungs, pleura and trachea: A solid right upper lobe smoothly marginated 1.2 x 0.9 cm nodule in series 201, image 493 is not radiotracer avid, SUV max 0.7. Heart: Normal physiologic uptake. Mediastinal space: No abnormal uptake. Liver: No abnormal uptake. Gallbladder and biliary ducts: No abnormal uptake. Pancreas: No abnormal uptake. Spleen: No abnormal uptake. Adrenal glands: No abnormal uptake. Kidneys and ureters: Normal physiologic uptake. Stomach and bowel: No abnormal uptake. Reproductive: Mild prominence of the prostate gland is noted. Mild uptake in the prostate gland is present diffusely, SUV max 3.9. Moderate bilateral scrotal hydroceles. Vasculature: No abnormal uptake. There are diffuse atherosclerotic changes. Lymph nodes: A lymph node in the left aortopulmonary window measures 1.2 x 0.8 cm on series 201, image 485, SUV max 4.7. Uptake in the left hilar region appears to be within 2 adjacent lymph nodes measuring up to 8 mm in greatest dimension on series 201, image 469, SUV max 4.7. Non radiotracer avid calcified mediastinal lymph nodes are present. A noncalcified mildly prominent subcarinal lymph node measures 1.6 x [address] image 465, SUV max 2.8. Skeleton: No abnormal uptake. Degenerative changes in the spine are present. A suture anchor in the right humeral greater tuberosity is present. Soft tissues: Elevated uptake in the soft tissues along the medial and anterior aspect of the visualized mid to distal right femoral shaft is identified, SUV max 6.5 on PET series 201, image 3. This region is not fully imaged. Corresponding subcutaneous fat stranding along the distal anterior right femoral shaft noted on CT series 201, image 1. METRICS: Mediastinal blood pool: SUV max 3.0, SUV mean 2.5 PET/PET skull to thigh INIT [id number] IMPRESSION: 1. Patient's serum glucose at the time of the examination was 169 mg/dL. There is no provided history of diabetes mellitus. Correlate with clinical history and findings is recommended. 2. A solid right upper lobe nodule is not radiotracer avid. Lack of uptake favors a benign etiology. Consider follow-up chest CT in 3 months for further surveillance. 3. Mild uptake is identified within mediastinal or left hilar lymph nodes, which can be inflammatory or infectious in etiology. A malignant etiology is less likely but cannot be entirely excluded. 4. Asymmetric uptake is noted within an apparent right parotid nodule, not well assessed on the CT images secondary to artifact. This uptake can be seen with benign or malignant etiologies. Consider dedicated CT or MRI of the soft tissues of the neck with intravenous contrast for further evaluation. 5. Asymmetric uptake in the soft tissues of the distal right thigh is noted, associated with mild subcutaneous fat stranding, likely reflecting inflammatory changes related to the history of recent right knee surgery. This process is not fully imaged on the current examination. 6. Mild prominence of the prostate gland is noted, with mild diffuse uptake. Assessment of the prostate gland is limited by PET-CT. Correlation with clinical findings/PSA level is recommended. 7. Acute and chronic appearing paranasal sinus disease. 8. Additional nonurgent findings as detailed above.
== END 2024-07-02 10:23 | disposition home or self-care (01) ==
LOC: RAD 10:22
PROVIDERS: Visit Provider Family Medicine
DX: R91.1 Solitary pulmonary nodule (principal); J32.9 Chronic sinusitis, unspecified; N43.3 Hydrocele, unspecified; R93.89 Abnormal findings on diagnostic imaging of other specified body structures
CPT/HCPCS: 78815; A9552

== ENCOUNTER 2024-07-31 06:30 | Outpatient (RCR) | payer BC, SELFPAY | END 2024-08-05 09:23 | disposition home or self-care (01) | LOC: SPT 06:30 | PROVIDERS: Visit Provider Specialist | DX: M17.12 Unilateral primary osteoarthritis, left knee (principal) | CPT/HCPCS: 97110 ==

== ENCOUNTER → 2024-08-23 14:44 | Outpatient (BNVA) | payer BC, SELFPAY | PROVIDERS: Visit Provider Specialist | DX: Z98.890 Other specified postprocedural states (principal); Z96.651 Presence of right artificial knee joint; M17.11 Unilateral primary osteoarthritis, right knee | CPT/HCPCS: 73560; 73565 ==

== ENCOUNTER 2024-10-13 16:01 | Outpatient (CLI) | payer BC, SELFPAY ==
--- NOTE | 2024-10-13 16:13 | CT_ITS ---
WS: [id number] CT NECK WITH CONTRAST HISTORY: PAROTID NODULE TECHNIQUE: Contiguous 2 mm axial images are performed through the neck with intravenous contrast. Sagittal and coronal reformats are also submitted. All CT scans at [facility] use at least one of these dose optimization techniques: automated exposure control; mA and/or kV adjustment per patient size (includes targeted exams where dose is matched to clinical indication); or iterative reconstruction. CONTRAST: CONTRAST: Omnipaque 350; 100 mL IV. DLP: 242.23 mGy.cm COMPARISON: PET/CT 07/02/2024 Nasopharynx, oropharynx, hypopharynx and larynx are unremarkable. No soft tissue masses or abnormal enhancement. Torus tubarius and fossa of Rosenmuller and parapharyngeal fat are normal. Small cervical chain lymph nodes. Level 1 lymph nodes measure 9.7 mm. Level 2 lymph nodes measure up to 10 mm. Normal fatty laurel. No pathologically enlarged lymph node. Large solid enhancing mass in the RIGHT parotid gland. Parotid mass extends from the superficial to the deep portion of the gland. Mass measures 3.0 x 3.5 x 3.4 cm. There are a few very small cystic areas within the parotid mass. Capsule is very slightly lobulated and irregular. Mass is encroaching upon the RIGHT jugular vein. No contact on the vein. Mass is in slight contact with the RIGHT retromandibular vein. No mass in the LEFT parotid gland. Mild cervical spondylosis. Visualized portions of the skull base demonstrate no abnormalities. Orbits and globes are within normal limits. No soft tissue masses. Visualized paranasal sinuses and mastoid air cells are normal. Reidentified well-circumscribed 8.7 mm nodule RIGHT upper lobe there is a least partially calcified. Calcification was better identified on the chest CT performed on the same day. LEFT vertebral artery arises directly from the arch. CT/CT neck w con* [id number] IMPRESSION: 1. Large RIGHT parotid gland mass extends into both the superficial and deep p ortions of the gland. Mass measures 3.0 x 3.5 x 3.4 cm (TRV x AP x CC). Pleomor phic adenoma versus Warthin's tumor. Malignancy cannot be excluded by imaging. Recommend ENT consultation. 2. Small cervical chain lymph nodes. No pathologic nodes identified.
--- NOTE | 2024-10-13 16:13 | CT_ITS ---
WS: [id number] CT chest wo con [id number] HISTORY: PULMONARY NODULE TECHNIQUE: Axial imaging performed through the thorax. Coronal and sagittal reformats are submitted. All CT scans at [facility] use at least one of these dose optimization techniques: automated exposure control; mA and/or kV adjustment per patient size (includes targeted exams where dose is matched to clinical indication); or iterative reconstruction. CONTRAST: None DLP: 599.03 mGy.cm COMPARISON: 06/16/2024 Lungs and central airway: Hyperinflated lungs. 8.7 mm nodule in the RIGHT upper lobe is calcified. Calcification has progressed since the prior study of 06/16/2024 and there is less solid component. No additional mass or nodule. No pneumonia. Pleura: Normal. No pleural effusion. Heart and pericardium: Normal size heart with no pericardial effusion. Mediastinum and laurel: Densely calcified RIGHT hilar lymph node. No pathologically enlarged lymph nodes. Vessels: Normal size aortic and pulmonary artery. No coronary artery calcifications. Chest wall and lower neck: No soft tissue masses. Upper abdomen: No adrenal mass. Visualized liver is negative. Osseous structures: No destructive process. CT/CT chest wo con [id number] IMPRESSION: 1. RIGHT upper lobe pulmonary nodule is calcified measuring 8.7 mm. Calcificat ion has progressed since the prior study suggesting this is a benign granuloma. 2. No additional mass or pulmonary nodule. 3. No mediastinal or hilar adenopathy.
[2024-10-13] MEDS: iohexol 350 mg/mL 500 mL Btl (per mL) IV (16:32)
== END 2024-10-13 16:02 | disposition home or self-care (01) ==
PROVIDERS: Visit Provider Family Medicine
DX: R91.1 Solitary pulmonary nodule (principal); K11.8 Other diseases of salivary glands; R59.0 Localized enlarged lymph nodes; M47.892 Other spondylosis, cervical region; J98.4 Other disorders of lung; R91.8 Other nonspecific abnormal finding of lung field
CPT/HCPCS: 70491; 71250

== ENCOUNTER → 2025-02-21 15:08 | Outpatient (BNVA) | payer BC, SELFPAY | PROVIDERS: PCP Family Medicine; Visit Provider Specialist | DX: Z96.651 Presence of right artificial knee joint (principal) | CPT/HCPCS: 73560; 73565 ==

== ENCOUNTER → 2025-06-13 08:39 | Outpatient (BNVA) | payer BC, SELFPAY | PROVIDERS: PCP Family Medicine; Visit Provider Specialist | DX: Z47.89 Encounter for other orthopedic aftercare (principal); Z96.651 Presence of right artificial knee joint | CPT/HCPCS: 73560; 73565 ==

== ENCOUNTER → 2025-06-15 16:05 | Outpatient (BNVA) | payer BC, SELFPAY | PROVIDERS: PCP Family Medicine; Visit Provider Family Medicine | DX: E78.2 Mixed hyperlipidemia (principal); Z12.5 Encounter for screening for malignant neoplasm of prostate; F52.4 Premature ejaculation; R73.09 Other abnormal glucose; Z13.6 Encounter for screening for cardiovascular disorders | CPT/HCPCS: 80053; 83036; 84153; 85025 ==